=== PATIENT | male | born 2000 | race African-American/Black ===

== ENCOUNTER 2025-03-10 13:51 | Inpatient (IN) | payer OTHER, SELFPAY ==
[2025-03-10 09:27] VITALS: BP 130/93
--- NOTE | 2025-03-10 09:43 | ED.GENMED ---
History of Present Illness
General
Chief Complaint: Musculo-Skeletal Complaint
Time Seen by Provider: 03/10/25 09:31
History of Present Illness
History of Present Illness:
24-year-old male presents the emergency department for evaluation of myalgias and dark urine. He states he had a vigorous workout 3 days ago for the first time in quite a long time has been excessively sore since then. Notes that his urine was
darker in color last night and this morning. Denies any recent fevers or chills. Denies illicit substance use. No painful urination.
Past History
Past History
ED Past Medical History: Psychiatric
ED Past Surgical History: None
Social History
Tobacco: Non-smoker
Alcohol: Occasional
Drug: None
Personal: Other (Engaged)
Living: with family
Employment: Employed
Review of Systems
Review of Systems
Allergies reviewed?: Yes
All Other Systems: ROS reviewed and negative except as documented in HPI and ROS
Phy Exam
Physical Exam
Physical Exam:
GEN: Well appearing, NAD, WDWN
HEENT: Oral mucosa moist, no scleral icterus
Cardiac: Regular rate
Lung: No respiratory distress, no tachypnea
MSK: No gross deformity or injuries
Skin: Good color, no pallor or jaundice, no rashes
Neuro: AO x3, moves all extremities freely
Psych: Calm, cooperative
Course
Orders/Labs/Results
Orders:
Orders
03/10/25 09:43
0.9% Sodium Chloride 1000 ml [Nss] 1,000 ml IV BOLUS
03/10/25 09:54
CPK [Creatine Phosphokinase] Urgent
Complete Blood Count/With Diff Urgent
Comprehensive Metabolic Panel Urgent
Urinalysis Reflex To Culture Urgent
Date Specimen was Collected: 03/10/25
Time Specimen was Collected: 09:48
Urine Microscopic Reflex Cult Urgent
03/10/25 11:27
0.9% Sodium Chloride 1000 ml [Nss] 1,000 ml IV BOLUS
Lactated Ringers [Lr] 1,000 ml IV BOLUS
03/10/25 13:14
Admit/Transfer Patient As Directed
Co-Sign Provider:
Level of Care: Inpatient admission
Assign to:: Medical/Surgical
Physician / Group: cami
Diagnosis: rhabdomyoylsis
Reason for Hospitalization: rhabdomyoylsis
Expected length of stay greater than two midnights?: Yes
ELOS- Estimated Length of Stay in days: 2
I certify the patient meets the requirements for IP care: Yes
PRN Pain Medication Management As Directed
May give lesser potent ordered pain med per pt: Yes
preference::
Protocol:: Medication orders for pain may be administered in a
manner that supports deferring to patient preference
when the pt is:
- Requesting an ordered lesser potent pain medication.
Least to most potent pain medications are defined
as: acetaminophen < NSAID < tramadol < opioids
(morphine, oxycodone, hydromorphone).
- Requesting a lesser dose of the same medication IF
ORDERED.
- Requesting a less intrusive route of administration
if both routes are prescribed by the provider (PO <
IV).
03/10/25 13:15
Code Status As Directed
Resuscitation Status: Full Code
Abnormal Lab Results
03/10/25
09:54
Plt Count 437 H 10^3/uL
(130-400)
Glucose 129 H mg/dl
(70-99)
AST 994 H* U/L
(17-59)
ALT 294 H U/L
(0-50)
Creatine Kinase 565350 H U/L
(55-170)
Ur Occult Blood Reflex 4+ A
(Negative)
Urine Albumin (Reflex) 3+ A
(Neg - Trace)
03/10/25 09:54
03/10/25 09:54
Vital Signs
Initial and Last Documented VS:
Initial Vital Signs
Temp Pulse Resp BP Pulse Ox
98.4 F 92 18 130/93 100
03/10/25 09:27 03/10/25 09:27 03/10/25 09:27 03/10/25 09:27 03/10/25 09:27
Last Documented Vital Signs
Temp Pulse Resp BP Pulse Ox
98.4 F 75 18 140/86 98
03/10/25 09:27 03/10/25 13:57 03/10/25 09:27 03/10/25 13:57 03/10/25 13:57
MDM/Problems Addressed
MDM/Problems Addressed:
24-year-old male presents with diffuse body pain and myalgias found to have rhabdomyolysis secondary to overexertion, will admit for IV fluids
*Pulse Oximetry
Patient hypoxic: no
Comment: 100% RA
*Critical Care Note
Total Time (30-74mins, 75-104mins- exclusive of procedures): Not Applicable
ED Attending Note
-
Portions of this chart may have been created with voice recognition software.� Occasional wrong word or��sound alike� substitutions may have occurred due to the inherent limitations of voice recognition software.
Discharge Plan
Departure
Patient Disposition: Admit
Date of Disposition: 03/10/25
Time of Disposition: 12:46
Admit to: Med/Surg
Presentation/result/management discussed w/ accepting MD/DO: Hospitalist
Discharge Problem:
Exertional rhabdomyolysis
Interventions
Interventions:
*Risk Screen - Suicide Last Done: 03/10/25 09:27
*General Assessment Last Done: 03/10/25 09:27
*Neglect/Abuse Screening Last Done: 03/10/25 09:27
*ED- Fall Risk Assessment Last Done: 03/10/25 09:44
*ED COVID-19 Vaccine History Last Done: 03/10/25 09:44
ED-Musculoskeletal Assessment Last Done: 03/10/25 09:44
[2025-03-10] MEDS: NSS 1000 IV (09:55)
[2025-03-10 10:24] LABS: Urine Albumin 3+ (Neg - Trace); Urine Bilirubin Negative (Negative); Urine Character Clear (Clear); Urine Color Yellow; Urine Glucose Negative (Negative); Urine Ketone Negative (Negative); Urine Leukocyte Negative (Negative); Urine Nitrite Negative (Negative); Urine Occult Blood 4+ (Negative); Urine Urobilinogen Negative (Neg - 1+); Urine pH 6.5 (5.0-9.0)
[2025-03-10 10:25] LABS: % Basophils 0.2 % (0-2); % Eosinophils 4.3 % (0-6); % Immature Granulocytes 0.5 % (0-0.5); % Lymphocytes 25.7 % (20.5-51.1); % Monocytes 4.3 % (1.7-9.3); Absolute Eosinophils 0.3 10^3/uL (0-0.7); Absolute Lymphocytes 1.6 10^3/uL (1.2-3.4); Absolute Monocytes 0.3 10^3/uL (0.1-0.6); Hematocrit 39.8 % (39.0-52.0); Hemoglobin 13.5 g/dL (13.0-18.0); Mean Corp Hgb Conc. 33.9 g/dL (33.0-37.0); Mean Corpuscular Hgb 28.5 pg (27.0-31.0); Mean Corpuscular Volume 84.1 fL (80.0-94.0); Mean Platelet Volume 9.5 fL (7.4-10.4); Nucleated Red Blood Cells % 0 % (-); Platelet Count 437 10^3/uL (130-400); Red Blood Cell Count 4.73 10^6/uL (4.70-6.10); Red Cell Dist. Width 13.3 % (11.5-14.5); White Blood Cell Count 6.1 10^3/uL (4.8-10.8)
[2025-03-10 10:29] LABS: Albumin 4.7 g/dl (3.5-5.0); Blood Urea Nitrogen 11 mg/dl (9-20); Calcium 9.7 mg/dl (8.4-10.2); Carbon Dioxide 30 mmol/L (22-30); Chloride 107 mmol/L (98-107); Potassium 4.2 mmol/L (3.5-5.1); Sodium 142 mmol/L (135-145); Total Bilirubin 0.5 mg/dl (0.2-1.3); Total Protein 7.6 g/dl (6.3-8.2); eGFR > 60.00
[2025-03-10 10:41] LABS: ALT (SGPT) 294 U/L (0-50); Alkaline Phosphatase 73 U/L (38-126); Glucose 129 mg/dl (70-99)
[2025-03-10 10:52] LABS: Urine Red Blood Cell 0-2 /HPF (0-2); Urine White Cell 0-2 /HPF (0-5)
[2025-03-10 10:53] LABS: Urine Squamous Cell 0-2 /LPF (Few)
[2025-03-10 10:55] VITALS: BP 113/67
[2025-03-10 10:59] LABS: AST (SGOT) 994 U/L (17-59)
[2025-03-10 11:17] LABS: Creatine Phosphokinase 101421 U/L (55-170)
[2025-03-10] MEDS: LR 1000 IV ×3 (11:37→22:39)
--- NOTE | 2025-03-10 13:15 | HPS.HSE ---
Family Physician
-
Family Physician: Juan José Sams MD, Resid
Chief Complaint
-
muscle pain
History of Present Illness
24-year-old male past medical history of PTSD, anxiety presenting with muscle pain and dark urine. He had a vigorous workout 3 days ago for the first time in a long time and has been excessively sore since then in the upper body. His urine was
dark in color since last night and this morning. Denies fevers or chills. Denies any drugs. Denies any burning with urination. Denies chest pain or shortness of breath.
He vapes nicotine and medical marijuana.
No prior surgeries.
He denies using any supplements.
Medical History
Past Medical History
Past Medical History: Reports Other (PTSD, anxiety)
Past Surgical History: Reports None
Social History
Tobacco: Vaping
Alcohol: None
Drug: Marijuana
Family History
Family History: Not pertinent
Allergies / Home Medications
Allergies reflects when Allergies were last updated in [facility].
Home Medications with original date entered in [facility]
Allergy/Medication List:
Allergies
Allergy/AdvReac Type Severity Reaction Status Date / Time
No Known Allergies Allergy Verified 03/10/25 09:26
Home Medications
Medical Cannabis 1 dose PO BIDPRN PRN PTSD/ anxiety symptoms 03/10/25
acetaminophen 500 mg tablet (Tylenol Extra Strength) 1,000 mg PO Q6H PRN mild pain 03/10/25
Review of Systems
-
History Source: Patient
A 12 point ROS was completed and negative except as noted: Yes
Constitutional: Reports No Symptoms
EENT: Reports No Symptoms
Respiratory: Reports No Symptoms
Cardiac: Reports No Symptoms
Abdomen/GI: Reports No Symptoms
: Reports No Symptoms
Musculoskeletal: Reports No Symptoms
Skin: Reports No Symptoms
Neurological: Reports No Symptoms
Endocrine: Reports No Symptoms
Hematologic/Lymphatic: Reports No Symptoms
Psych: Reports No Symptoms
Physical Exam
Vital Signs
Vital Signs
Temp Pulse Resp BP Pulse Ox
98.4 F 92 18 130/93 100
03/10/25 09:27 03/10/25 09:27 03/10/25 09:27 03/10/25 09:27 03/10/25 09:27
Physical Exam
General: Well Developed, Well Nourished and No Apparent Distress
HEENT: NormoCephalic, Moist mucous membranes and Atraumatic
Respiratory: Clear
Cardiac: S1/S2 and Regular Rhythm; No Murmur or Rub
GI: Soft, Non Tender, Non Distended and Normal Bowel Sounds; No Organomegaly
Rectal: Deferred by Provider
Musculoskeletal: No Clubbing, No Cyanosis and No Edema
Skin: No Rash
Neuro: Nonfocal/grossly intact
Laboratory Results
-
03/10/25 09:54
03/10/25 09:54
Laboratory Results
Total Bilirubin 0.5 mg/dl (0.2-1.3) 03/10/25 09:54
AST 994 U/L (17-59) H* 03/10/25 09:54
ALT 294 U/L (0-50) H 03/10/25 09:54
Alkaline Phosphatase 73 U/L (38-126) 03/10/25 09:54
Data Reviewed
-
Lab Data: Labs Reviewed by me
Old Records: Reviewed
Impression/Plan
-
IMPRESSION:
PLAN:
# Rhabdomyolysis secondary to excessive workout
# Transaminitis secondary to rhabdomyolysis
- CK of 101,000
- UA just showing +4 blood
- IV fluids
Nicotine use
Medical marijuana use
Anxiety/PTSD
Full code
DVT prophylaxis�SCDs
Regular diet
[2025-03-10 13:57] VITALS: BP 140/86
[2025-03-10 16:02] VITALS: BP 132/82
[2025-03-10 16:03] VITALS: BMI 29.4
--- NOTE | 2025-03-10 16:05 | PTCARENOTE ---
Patient arrived to unit. VSS. AAOx4. Patient denies any pain at this time. patient in NAD. patient ambulated from stretcher to bed. call tillman in reach. safety maintained. will continue to monitor.
--- NOTE | 2025-03-10 16:24 | CM ---
CM reviewed chart and met with pt and his bedside in ED. Lives with his , multistory home, [address], second floor BR/BA.
Independent at baseline, no DME in home. No hx VN/SNF.
PCP: [facility], has seen Juan José Moreno and Kaycee Sams
Pharmacy: [facility]
Discharge plan: Anticipate home, no needs
[2025-03-10 22:55] VITALS: BP 113/67
--- NOTE | 2025-03-11 04:20 | DOWNTIME ---
Addendum entered by Heidi Milan RN 03/11/25 14:12:
Downtime was 03/11/2025 from 0100 to 03/11/2025 at 0415
Original Note:
There was a [employer] Downtime on 03/10/2025 from 0100 to 03/11/2025 at 0415. Downtime documentation of patient's care, including medication administrations, has been reconciled in the electronic record per guidelines. Refer to the
patient's paper chart under the miscellaneous tab to see printed paper medication records and downtime forms.
[2025-03-11] MEDS: LR 1000 IV ×2 (04:31→10:59)
[2025-03-11 06:47] LABS: % Basophils 0.3 % (0-2); % Eosinophils 5.5 % (0-6); % Immature Granulocytes 0.3 % (0-0.5); % Lymphocytes 30.9 % (20.5-51.1); % Monocytes 7.8 % (1.7-9.3); % Neutrophils 55.2 % (42.2-75.2); Absolute Eosinophils 0.3 10^3/uL (0-0.7); Absolute Lymphocytes 1.8 10^3/uL (1.2-3.4); Absolute Monocytes 0.5 10^3/uL (0.1-0.6); Absolute Neutrophils 3.2 10^3/uL (1.4-6.5); Hematocrit 38.7 % (39.0-52.0); Mean Corp Hgb Conc. 33.6 g/dL (33.0-37.0); Mean Corpuscular Hgb 28.5 pg (27.0-31.0); Mean Corpuscular Volume 84.9 fL (80.0-94.0); Mean Platelet Volume 9.6 fL (7.4-10.4); Nucleated Red Blood Cells % 0 % (-); Platelet Count 361 10^3/uL (130-400); Red Blood Cell Count 4.56 10^6/uL (4.70-6.10); Red Cell Dist. Width 13.3 % (11.5-14.5); White Blood Cell Count 5.8 10^3/uL (4.8-10.8)
[2025-03-11 07:21] LABS: ALT (SGPT) 344 U/L (0-50); Albumin 4.1 g/dl (3.5-5.0); Alkaline Phosphatase 66 U/L (38-126); Blood Urea Nitrogen 7 mg/dl (9-20); Calcium 9.4 mg/dl (8.4-10.2); Carbon Dioxide 30 mmol/L (22-30); Chloride 107 mmol/L (98-107); Estimated Creatinine Clearance > 125 ml/min; Glucose 97 mg/dl (70-99); Potassium 4.7 mmol/L (3.5-5.1); Sodium 140 mmol/L (135-145); Total Bilirubin 0.6 mg/dl (0.2-1.3); Total Protein 6.5 g/dl (6.3-8.2); eGFR > 60.00
[2025-03-11 07:30] LABS: AST (SGOT) 1055 U/L (17-59)
--- NOTE | 2025-03-11 07:32 | W.PN.HOSP.TC ---
Addendum entered and electronically signed by Tiffanie Gonzalez MD 03/11/25 19:05:
I saw and evaluated the patient independently. I reviewed the resident�s note and agree with findings and plan as documented by Dr. Borjas.
GENERAL: well developed, well nourished, male in no apparent distress
HEENT: NC/AT
HEART: regular rate and rhythm, +S1, +S2
LUNGS : clear to auscultation bilaterally
ABDOM: soft, nontender, nondistended, + bowel sounds
EXT: no cyanosis, clubbing--edema bilateral upper arms
NEUROLOGIC: grossly intact
Exertional Rhabdomyolysis after severe workout--denies creatine supplements--Severe elevation of CK level on presentation at [id number]--kkjml of myoglobinuria on Urinalysis showing 4+ blood, No RBC on microscope--Switch fluid to sterile water +
Bicarb--Continue on Aggressive IV fluids --follow CMP/CPK
Transaminitis likely secondary to Rhabdomyolysis--Elevated AST 994 >ALT 294 on presentation--Albumin, total bilirubin normal--Continue with Aggressive IV fluids
History of PTSD/Anxiety--On Home Medical Cannabis
Nicotine Use --Vaping--counselled
CODE STATUS-- Full code
DVT proph-- SCDs
Original Note:
Today's Communication/Plan
-
;/
Assessment / Plan
Assessment / Plan
Assessment/ Plan
#Exertional Rhabdomyolysis
-Severe elevation of CK level on presentation at [id number]
-signs of myoglobinuria on Urinalysis showing 4+ blood, No RBC on microscope
-s/p NS, LR bolus in ED
-Switch fluid to sterile water + Bicarb
-Continue on Aggressive IV fluids
-Monitor Urine output, Electrolytes.
-Avoid NSAIDS
-CK today [id number]
-Follow BMP
#Transaminitis likely secondary to Rhabdomyolysis
-Elevated AST 994 >ALT 294 on presentation
-Albumin, TBil normal
-Continue with Aggressive IV fluids
-Trend LFTS
#History of PTSD/Anxiety
-On Home Medical Cannabis
-Hold while in-house
#Nicotine Use
-Behavioral counselling.
CODE STATUS; Full code
DVT ppx: SCDs
Anticipated Discharge: 24 - 48 hours
Subjective/Interval History
-
patient seen and examined at bedside. states Urine now clear. Reports muscle cramping. Overall in no acute distress
Objective Data
-
Labs:
Laboratory Results
03/11/25
05:59
WBC 5.8
Hgb 13.0
Hct 38.7 L
Plt Count 361
Sodium 140
Potassium 4.7
Chloride 107
Carbon Dioxide 30
BUN 7 L
Creatinine 0.8
Glucose 97
Calcium 9.4
Total Bilirubin 0.6
AST 1055 H*
ALT 344 H
Alkaline Phosphatase 66
Vital Signs:
Vital Signs
Temp Pulse Resp BP Pulse Ox
97.8 F 66 16 113/67 99
03/10/25 22:55 03/10/25 22:55 03/10/25 22:55 03/10/25 22:55 03/10/25 22:55
Review of Systems
-
All other systems: Reviewed and negative (except as documented)
Physical Exam
-
General: Well Developed, Well Nourished and No Apparent Distress
HEENT: Normocephalic and Atraumatic
Respiratory: Clear to Auscultation; Negative Wheezes, Rales, Rhonchi or Crackles
Cardiac: Regular Rhythm and S1/S2
GI: Soft, Nontender and Nondistended
Musculoskeletal: No Clubbing, No Cyanosis and No Edema
Skin: Warm and Dry
Neuro: Awake, Alert, Oriented and AO x 3
Psych: Calm
[2025-03-11 08:09] VITALS: BP 120/81
[2025-03-11 08:53] LABS: Creatine Phosphokinase 100947 U/L (55-170)
[2025-03-11] MEDS: TYLENOL 650 MG PO ×2 (09:15→21:28)
[2025-03-11] MEDS: SODIUM BICARBONATE 1150 MEQ IV ×2 (14:00→22:35)
[2025-03-11 15:33] VITALS: BP 119/68
--- NOTE | 2025-03-11 17:26 | CM ---
Patient seen at bedside with physician and family members on [facility]. CM will continue to follow for discharge planning needs.
Plan; home with no needs anticipated.
[2025-03-11 23:00] VITALS: BP 130/74
--- NOTE | 2025-03-12 05:58 | PTCARENOTE ---
Assumed care at 1915. VSS. Patient complains of mild, generalized pain characterized as constant aching. PRN tylenol administered. Sodium bicarb gtt at 150 ml/hr. Patient independent in the room. All patient needs met. Call tillman and personal
belongings within reach.
[2025-03-12 06:46] LABS: Hematocrit 37.2 % (39.0-52.0); Hemoglobin 12.6 g/dL (13.0-18.0); Mean Corp Hgb Conc. 33.9 g/dL (33.0-37.0); Mean Corpuscular Hgb 28.4 pg (27.0-31.0); Mean Platelet Volume 9.8 fL (7.4-10.4); Platelet Count 363 10^3/uL (130-400); Red Blood Cell Count 4.43 10^6/uL (4.70-6.10); Red Cell Dist. Width 13.1 % (11.5-14.5); White Blood Cell Count 5.3 10^3/uL (4.8-10.8)
[2025-03-12 07:18] LABS: ALT (SGPT) 387 U/L (0-50); Alkaline Phosphatase 66 U/L (38-126); Blood Urea Nitrogen 9 mg/dl (9-20); Calcium 9.4 mg/dl (8.4-10.2); Carbon Dioxide 34 mmol/L (22-30); Chloride 104 mmol/L (98-107); Estimated Creatinine Clearance > 125 ml/min; Glucose 91 mg/dl (70-99); Magnesium 2.2 mg/dl (1.6-2.3); Potassium 4.2 mmol/L (3.5-5.1); Sodium 142 mmol/L (135-145); Total Bilirubin 0.5 mg/dl (0.2-1.3); Total Protein 6.4 g/dl (6.3-8.2); eGFR > 60.00
[2025-03-12 07:22] LABS: AST (SGOT) 1073 U/L (17-59)
--- NOTE | 2025-03-12 07:31 | W.PN.HOSP.TC ---
Addendum entered and electronically signed by Tiffanie Gonzalez MD 03/12/25 19:22:
I saw and evaluated the patient independently. I reviewed the resident�s note and agree with findings and plan as documented by Dr. Borjas.
GENERAL: well developed, well nourished, male in no apparent distress
HEENT: NC/AT
HEART: regular rate and rhythm, +S1, +S2
LUNGS : clear to auscultation bilaterally
ABDOM: soft, nontender, nondistended, + bowel sounds
EXT: no cyanosis, clubbing--edema bilateral upper arms improving, soreness improving
NEUROLOGIC: grossly intact
Exertional Rhabdomyolysis after severe workout--denies creatine supplements--Severe elevation of CK level on presentation at 101,421--signs of myoglobinuria on Urinalysis showing 4+ blood, No RBC on microscope--Continue Aggressive IV fluids with
bicarb --follow CMP/CPK
Transaminitis likely secondary to Rhabdomyolysis--Elevated AST 994 >ALT 294 on presentation--Albumin, total bilirubin normal--Continue with Aggressive IV fluids--hopefully has plateaued--if continues to rise, then consider US or GI consult
History of PTSD/Anxiety--On Home Medical Cannabis
Nicotine Use --Vaping--counselled
CODE STATUS-- Full code
DVT proph-- SCDs
Original Note:
Today's Communication/Plan
-
;/
Assessment / Plan
Assessment / Plan
Assessment/ Plan
#Exertional Rhabdomyolysis
-Severe elevation of CK level on presentation at [id number]
-signs of myoglobinuria on Urinalysis showing 4+ blood, No RBC on microscope
-s/p NS, LR bolus in ED
-Switch fluid to sterile water + Bicarb
-Continue on Aggressive IV fluids
-CK downtrending
-Follow cmp/ck
#Transaminitis likely secondary to Rhabdomyolysis
-Elevated AST 994 >ALT 294 on presentation
-Albumin, TBil normal.
-Continue with Aggressive IV fluids
-Continue to Trend LFTS
#History of PTSD/Anxiety
-On Home Medical Cannabis
-Hold while in-house
#Nicotine Use
-counselling.
CODE STATUS; Full code
DVT ppx: SCDs
Anticipated Discharge: > 48 hours
Subjective/Interval History
-
Patient seen and examined at bedside.
Objective Data
-
Labs:
Laboratory Results
03/12/25
05:57
WBC 5.3
Hgb 12.6 L
Hct 37.2 L
Plt Count 363
Sodium 142
Potassium 4.2
Chloride 104
Carbon Dioxide 34 H
BUN 9
Creatinine 0.8
Glucose 91
Calcium 9.4
Total Bilirubin 0.5
AST 1073 H*
ALT 387 H
Alkaline Phosphatase 66
Vital Signs:
Vital Signs
Temp Pulse Resp BP Pulse Ox
98.2 F 69 16 130/74 98
03/11/25 23:00 03/11/25 23:00 03/11/25 23:00 03/11/25 23:00 03/11/25 23:00
I&O
03/11/25 03/12/25 03/13/25
06:59 06:59 06:59
Intake Total 7897 / 7897
Balance 7897 / 7897
Review of Systems
-
All other systems: Reviewed and negative (except as documented)
Abdomen/GI: Reports No Symptoms; Denies Abdominal Pain, Nausea or Vomiting
Physical Exam
-
General: Well Developed, Well Nourished and No Apparent Distress
HEENT: Normocephalic and Atraumatic
Respiratory: Clear to Auscultation; Negative Wheezes, Rales, Rhonchi or Crackles
Cardiac: Regular Rhythm and S1/S2
GI: Soft, Nontender and Nondistended
Musculoskeletal: No Clubbing, No Cyanosis and No Edema
Skin: Warm and Dry
Neuro: Awake, Alert, Oriented and AO x 3
Psych: Calm
[2025-03-12 07:52] VITALS: BP 116/72
[2025-03-12 07:53] LABS: Creatine Phosphokinase 87128 U/L (55-170)
[2025-03-12] MEDS: SODIUM BICARBONATE 1150 MEQ IV ×3 (08:25→23:56)
[2025-03-12] MEDS: TYLENOL 650 MG PO ×3 (08:59→21:15)
[2025-03-12 11:56] VITALS: BP 116/72
--- NOTE | 2025-03-12 13:29 | CM ---
Patient seen at bedside with physician on . Patient and father in law also present. Patient is eager for discharge but understands that he needs to wait until physician indicates it is appropriate for discharge. CM will continue to follow
for discharge planning needs.
Plan; home with no needs anticipated.
[2025-03-12 15:58] VITALS: BP 118/65
[2025-03-12] MEDS: NICODERM TRANSDERMAL 14 MG TRANSDERM (16:59)
[2025-03-12 23:00] VITALS: BP 120/62
[2025-03-13 07:09] LABS: % Eosinophils 6.3 % (0-6); % Immature Granulocytes 0.2 % (0-0.5); % Lymphocytes 30.6 % (20.5-51.1); % Monocytes 6.1 % (1.7-9.3); % Neutrophils 55.8 % (42.2-75.2); Absolute Basophils 0.1 10^3/uL (0-0.2); Absolute Eosinophils 0.4 10^3/uL (0-0.7); Absolute Lymphocytes 1.9 10^3/uL (1.2-3.4); Absolute Monocytes 0.4 10^3/uL (0.1-0.6); Absolute Neutrophils 3.4 10^3/uL (1.4-6.5); Hematocrit 36.4 % (39.0-52.0); Hemoglobin 12.3 g/dL (13.0-18.0); Mean Corp Hgb Conc. 33.8 g/dL (33.0-37.0); Mean Corpuscular Hgb 28.7 pg (27.0-31.0); Mean Corpuscular Volume 84.8 fL (80.0-94.0); Mean Platelet Volume 9.8 fL (7.4-10.4); Nucleated Red Blood Cells % 0 % (-); Platelet Count 355 10^3/uL (130-400); Red Blood Cell Count 4.29 10^6/uL (4.70-6.10); Red Cell Dist. Width 13.1 % (11.5-14.5)
[2025-03-13 07:21] LABS: ALT (SGPT) 359 U/L (0-50); Alkaline Phosphatase 55 U/L (38-126); Blood Urea Nitrogen 11 mg/dl (9-20); Calcium 9.2 mg/dl (8.4-10.2); Carbon Dioxide 36 mmol/L (22-30); Chloride 101 mmol/L (98-107); Estimated Creatinine Clearance > 125 ml/min; Glucose 104 mg/dl (70-99); Magnesium 2.1 mg/dl (1.6-2.3); Potassium 3.8 mmol/L (3.5-5.1); Sodium 141 mmol/L (135-145); Total Bilirubin 0.5 mg/dl (0.2-1.3); Total Protein 6.4 g/dl (6.3-8.2); eGFR > 60.00
[2025-03-13 07:22] VITALS: BP 125/69
[2025-03-13 07:34] LABS: AST (SGOT) 846 U/L (17-59)
[2025-03-13] MEDS: NICODERM TRANSDERMAL 14 MG TRANSDERM (07:35)
[2025-03-13] MEDS: SODIUM BICARBONATE 1150 MEQ IV (07:44)
[2025-03-13 07:55] LABS: Creatine Phosphokinase 54749 U/L (55-170)
--- NOTE | 2025-03-13 08:03 | W.PN.HOSP.TC ---
Today's Communication/Plan
-
repeat BMP and cpk today.
If trending down, D.C later today
Assessment / Plan
Assessment / Plan
Assessment/ Plan
#Exertional Rhabdomyolysis
-Severe elevation of CK level on presentation at [id number]
-signs of myoglobinuria on Urinalysis showing 4+ blood, No RBC on microscope
-s/p NS, LR bolus in ED
-Switch fluid to sterile water + Bicarb
-Continue on Aggressive IV fluids
-CK downtrending
-Follow cmp/ck
#Transaminitis likely secondary to Rhabdomyolysis
-Now downtrending
-Elevated AST 994 >ALT 294 on presentation
-Albumin, TBil normal.
-Continue with Aggressive IV fluids
-Continue to Trend LFTS
#History of PTSD/Anxiety
-On Home Medical Cannabis
-Hold while in-house
#Nicotine Use
-counselling.
CODE STATUS; Full code
DVT ppx: SCDs
Anticipated Discharge: Within 24 hours
Subjective/Interval History
-
Patient seen and examined at bedside. No acute complaint
Objective Data
-
Labs:
Laboratory Results
03/13/25
05:58
WBC 6.0
Hgb 12.3 L
Hct 36.4 L
Plt Count 355
Sodium 141
Potassium 3.8
Chloride 101
Carbon Dioxide 36 H
BUN 11
Creatinine 0.7
Glucose 104 H
Calcium 9.2
Total Bilirubin 0.5
AST 846 H*
ALT 359 H
Alkaline Phosphatase 55
Vital Signs:
Vital Signs
Temp Pulse Resp BP Pulse Ox
98.2 F 76 16 120/62 98
03/12/25 23:00 03/12/25 23:00 03/12/25 23:00 03/12/25 23:00 03/12/25 23:00
I&O
03/12/25 03/13/25 03/14/25
06:59 06:59 06:59
Intake Total 7897 / 7897 2400 / 2400
Balance 7897 / 7897 2400 / 2400
Review of Systems
-
All other systems: Reviewed and negative (except as documented)
Abdomen/GI: Reports No Symptoms; Denies Abdominal Pain, Nausea or Vomiting
Physical Exam
-
General: Well Developed, Well Nourished and No Apparent Distress
HEENT: Normocephalic and Atraumatic
Respiratory: Clear to Auscultation; Negative Wheezes, Rales, Rhonchi or Crackles
Cardiac: Regular Rhythm and S1/S2
GI: Soft, Nontender and Nondistended
Musculoskeletal: No Clubbing, No Cyanosis and No Edema
Skin: Warm and Dry
Neuro: Awake, Alert, Oriented and AO x 3
Psych: Calm
[2025-03-13] MEDS: TYLENOL 650 MG PO (11:29)
[2025-03-13 14:49] VITALS: BP 119/71
--- NOTE | 2025-03-13 15:33 | CM ---
Plan is to home no needs when stable.
Plan; Home no needs.
[2025-03-13 16:57] LABS: ALT (SGPT) 365 U/L (0-50); Albumin 4.1 g/dl (3.5-5.0); Alkaline Phosphatase 62 U/L (38-126); Blood Urea Nitrogen 10 mg/dl (9-20); Calcium 9.4 mg/dl (8.4-10.2); Carbon Dioxide 35 mmol/L (22-30); Chloride 104 mmol/L (98-107); Estimated Creatinine Clearance > 125 ml/min; Glucose 110 mg/dl (70-99); Sodium 142 mmol/L (135-145); Total Bilirubin 0.3 mg/dl (0.2-1.3); Total Protein 6.6 g/dl (6.3-8.2); eGFR > 60.00
[2025-03-13 17:08] LABS: AST (SGOT) 765 U/L (17-59)
[2025-03-13 17:27] LABS: Creatine Phosphokinase 39968 U/L (55-170)
--- NOTE | 2025-03-13 18:02 | PTCARENOTE ---
Assumed care of pt from previous nurse. Pt for dc tomorrow. Pt denies pain. Pt call tillman is within reach, pt rings tiff. will cont to monitor.
[2025-03-13] MEDS: LR 1000 IV (18:04)
[2025-03-13 23:30] VITALS: BP 114/70
[2025-03-14] MEDS: LR 1000 IV ×4 (01:07→23:08)
[2025-03-14 07:12] VITALS: BP 115/67
[2025-03-14] MEDS: NICODERM TRANSDERMAL 14 MG TRANSDERM (08:55)
[2025-03-14 09:00] LABS: Hematocrit 37.8 % (39.0-52.0); Hemoglobin 12.5 g/dL (13.0-18.0); Mean Corp Hgb Conc. 33.1 g/dL (33.0-37.0); Mean Corpuscular Hgb 28.5 pg (27.0-31.0); Mean Corpuscular Volume 86.3 fL (80.0-94.0); Mean Platelet Volume 9.7 fL (7.4-10.4); Platelet Count 365 10^3/uL (130-400); Red Blood Cell Count 4.38 10^6/uL (4.70-6.10); Red Cell Dist. Width 13.2 % (11.5-14.5); White Blood Cell Count 6.8 10^3/uL (4.8-10.8)
--- NOTE | 2025-03-14 10:08 | PTCARENOTE ---
Assumed care of pt from previous nurse. Pt denies pain. Fluids infusing without issue. call tillman is within reach, will cont to monitor.
[2025-03-14 10:25] LABS: ALT (SGPT) 351 U/L (0-50); AST (SGOT) 586 U/L (17-59); Albumin 4.4 g/dl (3.5-5.0); Alkaline Phosphatase 61 U/L (38-126); Blood Urea Nitrogen 10 mg/dl (9-20); Calcium 9.6 mg/dl (8.4-10.2); Carbon Dioxide 27 mmol/L (22-30); Chloride 107 mmol/L (98-107); Estimated Creatinine Clearance > 125 ml/min; Glucose 85 mg/dl (70-99); Magnesium 2.2 mg/dl (1.6-2.3); Potassium 4.5 mmol/L (3.5-5.1); Sodium 141 mmol/L (135-145); Total Bilirubin 0.6 mg/dl (0.2-1.3); eGFR > 60.00
[2025-03-14 10:46] LABS: Creatine Phosphokinase 21169 U/L (55-170)
--- NOTE | 2025-03-14 11:22 | W.PN.HOSP.TC ---
Today's Communication/Plan
-
cont IVF
Assessment / Plan
Assessment / Plan
pt is a 24 year old male
Exertional Rhabdomyolysis after severe workout--denies creatine supplements--Severe elevation of CK level on presentation at 101,421, down to 21,000, needs to be < 5,000 in order to safely discharge--signs of myoglobinuria on Urinalysis showing 4+
blood, No RBC on microscope--Continue Aggressive IV fluids with bicarb --follow CMP/CPK
Transaminitis likely secondary to Rhabdomyolysis--Elevated AST 994 now down to 580, >ALT peaked at 380 and decreasing--Continue with Aggressive IV fluids-
History of PTSD/Anxiety--On Home Medical Cannabis
Nicotine Use --Vaping--counselled
CODE STATUS-- Full code
DVT proph-- SCDs
anticipating that by Sunday CPK will be < 5000 and pt can go home at that time with close follow up at the resident clinic
Anticipated Discharge: > 48 hours
Subjective/Interval History
-
Date of Service: March 14, 2025
pt feeling significantly better
Objective Data
-
Labs:
Laboratory Results
03/14/25
08:18
WBC 6.8
Hgb 12.5 L
Hct 37.8 L
Plt Count 365
Sodium 141
Potassium 4.5
Chloride 107
Carbon Dioxide 27
BUN 10
Creatinine 0.7
Glucose 85
Calcium 9.6
Total Bilirubin 0.6
AST 586 H*
ALT 351 H
Alkaline Phosphatase 61
Vital Signs:
max temp for 24 hours
03/13/25
14:49
Temp 98.4 F
Vital Signs
Temp Pulse Resp BP Pulse Ox
97.8 F 74 16 115/67 98
03/14/25 07:12 03/14/25 07:12 03/14/25 07:12 03/14/25 07:12 03/14/25 08:00
I&O
03/13/25 03/14/25 03/15/25
06:59 06:59 06:59
Intake Total 2400 / 2400 960 / 960
Balance 2400 / 2400 960 / 960
Review of Systems
-
All other systems: Reviewed and negative
Physical Exam
-
General: Well Developed, Well Nourished and No Apparent Distress
HEENT: Normocephalic and Atraumatic
Respiratory: Clear to Auscultation; Negative Wheezes or Rhonchi
Cardiac: Regular Rhythm and S1/S2
GI: Soft, Nontender, Nondistended and Normal Bowel Sounds
Musculoskeletal: No Clubbing, No Cyanosis and No Edema
[2025-03-14 15:29] VITALS: BP 121/68
[2025-03-14] MEDS: TYLENOL 650 MG PO (19:36)
[2025-03-14 23:10] VITALS: BP 102/73
[2025-03-15] MEDS: LR 1000 IV ×3 (06:23→19:19)
[2025-03-15 07:00] VITALS: BP 109/68
[2025-03-15] MEDS: NICODERM TRANSDERMAL 14 MG TRANSDERM (07:43)
[2025-03-15 07:52] LABS: ALT (SGPT) 299 U/L (0-50); AST (SGOT) 308 U/L (17-59); Albumin 3.9 g/dl (3.5-5.0); Alkaline Phosphatase 69 U/L (38-126); Blood Urea Nitrogen 12 mg/dl (9-20); Calcium 9.4 mg/dl (8.4-10.2); Carbon Dioxide 25 mmol/L (22-30); Chloride 108 mmol/L (98-107); Estimated Creatinine Clearance > 125 ml/min; Glucose 84 mg/dl (70-99); Potassium 4.2 mmol/L (3.5-5.1); Sodium 140 mmol/L (135-145); Total Bilirubin 0.4 mg/dl (0.2-1.3); Total Protein 6.3 g/dl (6.3-8.2); eGFR > 60.00
[2025-03-15 08:27] LABS: Creatine Phosphokinase 7554 U/L (55-170)
--- NOTE | 2025-03-15 10:58 | W.PN.HOSP.TC ---
Today's Communication/Plan
-
CPK at 5PM
if less than 5000, will d/c
Assessment / Plan
Assessment / Plan
pt is a 24 year old male
Exertional Rhabdomyolysis after severe workout--denies creatine supplements--Severe elevation of CK level on presentation at 101,421, down to 21,000, needs to be < 5,000 in order to safely discharge--signs of myoglobinuria on Urinalysis showing 4+
blood, No RBC on microscope--Continue Aggressive IV fluids--follow CMP/CPK
Transaminitis likely secondary to Rhabdomyolysis--Elevated AST 994 now down to 300, >ALT peaked at 380 and decreasing to 300--Continue with Aggressive IV fluids-
History of PTSD/Anxiety--On Home Medical Cannabis
Nicotine Use --Vaping--counselled--on nicotine patch
CODE STATUS-- Full code
DVT proph-- SCDs
repeating CPK later this afternoon and anticipating that by Sunday CPK will be < 5000 and pt can go home at that time with close follow up at the resident clinic--CMP, CPK script for 03/19
Anticipated Discharge: Within 24 hours
Subjective/Interval History
-
Date of Service: March 15, 2025
pt doing well--wants to go home if possible
Objective Data
-
Labs:
Laboratory Results
03/15/25
07:00
Sodium 140
Potassium 4.2
Chloride 108 H
Carbon Dioxide 25
BUN 12
Creatinine 0.8
Glucose 84
Calcium 9.4
Total Bilirubin 0.4
AST 308 H
ALT 299 H
Alkaline Phosphatase 69
Vital Signs:
max temp for 24 hours
03/14/25
15:29
Temp 98.8 F
Vital Signs
Temp Pulse Resp BP Pulse Ox
97.8 F 67 16 109/68 97
03/15/25 07:00 03/15/25 07:00 03/15/25 07:00 03/15/25 07:00 03/15/25 07:00
I&O
03/14/25 03/15/25 03/16/25
06:59 06:59 06:59
Intake Total 960 / 960 7080 / 7080 1999
Balance 960 / 960 7080 / 7080 1999
Review of Systems
-
All other systems: Reviewed and negative
Physical Exam
-
General: Well Developed, Well Nourished and No Apparent Distress
HEENT: Normocephalic and Atraumatic
Respiratory: Clear to Auscultation; Negative Wheezes or Rhonchi
Cardiac: Regular Rhythm and S1/S2; Negative Murmur
GI: Soft, Nontender, Nondistended, Normal Bowel Sounds and No Hepatosplenomegaly
Musculoskeletal: No Clubbing, No Cyanosis and No Edema
Neuro: Awake and Alert
[2025-03-15 15:00] VITALS: BP 106/58
[2025-03-15 17:55] LABS: Creatine Phosphokinase 6648 U/L (55-170)
[2025-03-15] MEDS: SODIUM BICARBONATE IV ×2 (19:43)
[2025-03-15 23:00] VITALS: BP 124/66
[2025-03-16] MEDS: LR 1000 IV ×2 (01:57→08:59)
--- NOTE | 2025-03-16 07:27 | W.PN.HOSP.TC ---
Today's Communication/Plan
-
;/
Assessment / Plan
Assessment / Plan
Assessment/ Plan
#Exertional Rhabdomyolysis
-Severe elevation of CK level on presentation at [id number]
-signs of myoglobinuria on Urinalysis showing 4+ blood, No RBC on microscope
-s/p sterile water + Bicarb, Now on LR
-Continue Aggressive IV fluids
-CK downtrending, 3561 today
-Follow cmp/ck
#Transaminitis likely secondary to Rhabdomyolysis
-Now downtrending
-Elevated AST 994 >ALT 294 on presentation
-Albumin, TBil normal.
-Continue with Aggressive IV fluids
-Continue to Trend LFTS
#History of PTSD/Anxiety
-On Home Medical Cannabis
-Hold while in-house
#Nicotine Use
-counselling.
CODE STATUS; Full code
DVT ppx: SCDs
Anticipated Discharge: Today
Subjective/Interval History
-
Patient seen and Examined at bedside. Denies acute complaint.
Objective Data
-
Labs:
Laboratory Results
03/16/25
07:18
Sodium Pending
Potassium Pending
Chloride Pending
Carbon Dioxide Pending
BUN Pending
Creatinine Pending
Glucose Pending
Calcium Pending
Total Bilirubin Pending
AST Pending
ALT Pending
Alkaline Phosphatase Pending
Vital Signs:
Vital Signs
Temp Pulse Resp BP Pulse Ox
97.9 F 70 16 124/66 99
03/15/25 23:00 03/15/25 23:00 03/15/25 23:00 03/15/25 23:00 03/15/25 23:00
I&O
03/15/25 03/16/25 03/17/25
06:59 06:59 06:59
Intake Total 7080 / 7080 8540 / 8540
Balance 7080 / 7080 8540 / 8540
Review of Systems
-
All other systems: Reviewed and negative (except as documented)
Physical Exam
-
General: Well Developed, Well Nourished and No Apparent Distress
HEENT: Normocephalic and Atraumatic
Respiratory: Clear to Auscultation; Negative Wheezes or Rhonchi
Cardiac: Regular Rhythm and S1/S2; Negative Murmur
GI: Soft, Nontender, Nondistended, Normal Bowel Sounds and No Hepatosplenomegaly
Musculoskeletal: No Clubbing, No Cyanosis and No Edema
Neuro: Awake, Alert, Oriented and AO x 3
Psych: Calm
[2025-03-16 07:58] VITALS: BP 115/55
[2025-03-16] MEDS: NICODERM TRANSDERMAL 14 MG TRANSDERM (08:59)
[2025-03-16 09:44] LABS: ALT (SGPT) 284 U/L (0-50); AST (SGOT) 182 U/L (17-59); Albumin 4.2 g/dl (3.5-5.0); Alkaline Phosphatase 65 U/L (38-126); Blood Urea Nitrogen 10 mg/dl (9-20); Calcium 9.4 mg/dl (8.4-10.2); Carbon Dioxide 25 mmol/L (22-30); Chloride 107 mmol/L (98-107); Creatine Phosphokinase 3561 U/L (55-170); Estimated Creatinine Clearance > 125 ml/min; Glucose 81 mg/dl (70-99); Potassium 4.1 mmol/L (3.5-5.1); Sodium 140 mmol/L (135-145); Total Bilirubin 0.6 mg/dl (0.2-1.3); Total Protein 6.6 g/dl (6.3-8.2); eGFR > 60.00
--- NOTE | 2025-03-16 10:32 | W.DCSUMMARY ---
Addendum entered and electronically signed by Tere Borjas MD, Resident 03/18/25 16:01:
Correction: Patient is a 24year old Male
Original Note:
Documented by User: Tere Borjas MD, Resident 03/16/25 12:01
Discharge Summary
Discharge Data
Date of Admission: 03/10/25
Date of Discharge: 03/16/25
-
Pending Results: No
Hospital Course
Brief Hospital course; This is a 74-year-old male with past medical history of anxiety who presented to ER 03/10 complaining of muscle pain and dark urine. The patient reported he had vigorous workouts 3 days prior, which she had not done for a
long time, and he had been sore after workout episodes. He also noted urine was dark in color. Upon presentation to the ED, he had a CK level of [id number], AST 994, ALT 294, normal creatinine, normal albumin, T. bili normal, other electrolytes
normal. Myoglobinuria on urinalysis showing 4+ blood, no RBCs on microscope. He was given bolus of normal saline, LR in the ED and continued on LR gtt. patient was admitted. He was continued on aggressive IV fluids, switched to sterile water plus
bicarb and then back to LR. His CK level and AST/ALT level began to downtrend with aggressive IV fluid. After 7 days of aggressive IV fluids, repeat CK level prior to discharge was 3561. AST 182, ALT 284. He will be discharged today to follow-up
with his PCP. He was given a script to check a CMP and CPK outpatient with correspondence sent to his PCP.
Discharge Plan
-
Patient Disposition: Home (Routine Discharge)
Discharge Diagnosis/Procedures: Exertional Rhabdomyolysis
Transaminitis secondary to Rhabdo
Condition: Good
Diet: As tolerated
Additional Diets: Goal: 64 oz of water daily
Activity: No strenuous activity
Driving Restrictions: As prior to admission
Blood Work: CMP and CPK on 03/19--script placed on chart
Referrals:
Juan José Mark MD, Resident [Family Provider, General] - in two to three days
Referral Note: follow up with your PCP by Sunday to receive repeat CMP, CPK script.
Prescriptions:
Continued
Medical Cannabis
1 dose PO BIDPRN PRN (Reason: PTSD/ anxiety symptoms)
Patient Comments:
[place] card, [place] product, dispensaries include [facility] and [facility]. Uses both edibes and inhaled products
Discontinued
acetaminophen [Tylenol Extra Strength] 500 mg Tablet
1,000 mg PO Q6H PRN (Reason: mild pain)
Discharge Orders:
Discharge Patient (As Directed); Ordered 03/16/25
Ordered By: Tere Borjas
Discharge Date and Time
Discharge Date/Time: 03/16/25 12:39
Print Language: SOMALI

Documented by User: Bronson Raymond DO 03/16/25 12:57
Discharge Summary
Discharge Data
Date of Admission: 03/10/25
Date of Discharge: 03/16/25
Total time spent discharging patient (in min): 32
Discharge Plan
-
Patient Disposition: Home (Routine Discharge)
Discharge Diagnosis/Procedures: Exertional Rhabdomyolysis
Transaminitis secondary to Rhabdo
Condition: Good
Diet: As tolerated
Additional Diets: Goal: 64 oz of water daily
Activity: No strenuous activity
Driving Restrictions: As prior to admission
Blood Work: CMP and CPK on 03/19--script placed on chart
Referrals:
Juan José Mark MD, Resident [Family Provider, General] - in two to three days
Referral Note: follow up with your PCP by Sunday to receive repeat CMP, CPK script.
Prescriptions:
Continued
Medical Cannabis
1 dose PO BIDPRN PRN (Reason: PTSD/ anxiety symptoms)
Patient Comments:
[place] card [place] product, dispensaries include [facility] and [facility]. Uses both edibes and inhaled products
Discontinued
acetaminophen [Tylenol Extra Strength] 500 mg Tablet
1,000 mg PO Q6H PRN (Reason: mild pain)
Discharge Orders:
Discharge Patient (As Directed); Ordered 03/16/25
Ordered By: Tere Borjas
Discharge Date and Time
Discharge Date/Time: 03/16/25 12:39
Print Language: SOMALI
--- NOTE | 2025-03-16 11:50 | CM ---
Home no needs.
Plan; Home no needs.
== END 2025-03-16 12:39 | disposition home or self-care (01) | DRG 558 ==
LOC: 4 WEST ACU 13:51
PROVIDERS: Internal Medicine; Physician Assistant; Student in an Organized Health Care Education/Training Program; ADMITTING PHYSICIAN Hospitalist; ATTENDING PHYSICIAN Internal Medicine; EMERGENCY PHYSICIAN Emergency Medicine; FAMILY PHYSICIAN Student in an Organized Health Care Education/Training Program
DX: M62.82 Rhabdomyolysis (principal); F17.290 Nicotine dependence, other tobacco product, uncomplicated; F41.9 Anxiety disorder, unspecified; F43.10 Post-traumatic stress disorder, unspecified
CPT/HCPCS: 80053; 81003; 81015; 82550; 83735; 84100; 85025; 85027; 96360; 99284; 99406

== ENCOUNTER → 2025-06-08 08:52 | Outpatient (REF) | payer OTHER, SELFPAY | LOC: HWRAD 08:52 | PROVIDERS: ATTENDING PHYSICIAN Student in an Organized Health Care Education/Training Program | DX: N50.89 Other specified disorders of the male genital organs (principal) | CPT/HCPCS: 76870; 93976 ==